=== PATIENT | male | born 1985 | race Caucasian/White ===

== ENCOUNTER 2018-02-26 11:34 | Emergency (ER) | payer BC, OTHER ==
[2018-02-26] MEDS ORDERED: Diphtheria,Pertussis(Acell),Tetanus Vaccine 0.5 ML SDV IM ONE (12:00)
--- NOTE | 2018-02-26 12:35 | CR ---
Clinical history: 32-year-old male injured left hand. Interpretation: Negative exam. Bandage artifact (no other foreign bodies). No sign of left hand or wrist fracture/dislocation.
[2018-02-26] MEDS ORDERED: Lidocaine 1% 30 ML SDV INJECT ONE (14:01)
--- NOTE | 2018-02-26 15:26 | EDM.PDOC ---
ED HPI GENERAL MEDICAL PROBLEM - General Chief Complaint: Laceration Stated Complaint: LACERATION/BLEEDING Time Seen by Provider: 02/26/18 14:00 Source of Information: Reports: Patient History Limitations: Reports: No Limitations - History of Present Illness INITIAL COMMENTS - FREE TEXT/NARRATIVE: ppatient comes emergency Department today with complaints of an injury to his left hand. This prior to arrival the patient was walking carrying a piece meat trimmer when he slipped and fell landing on his left hand. He sustained an injury to the pad surface of his left hand of his middle finger. His immunization status is unknown. He has a small amount of numbness to the pad of his left middle finger but no other injury. No other complaints. left hand Pain Score (Numeric/FACES): 3 - Related Data Allergies Allergy/AdvReac Type Severity Reaction Status Date / Time No Known Allergies Allergy Verified 02/26/18 12:02 Home Meds: Home Meds Amoxicillin/Potassium Clav [Augmentin 875-125 Tablet] 1 each PO BID #14 tablet 02/26/18 [Rx] Mupirocin Oint [Bactroban Oint] 22 gm TP BID #1 tube 02/26/18 [Rx] Past Medical History - Past Health History Medical/Surgical History: Denies Medical/Surgical History Social & Family History - Family History Family Medical History: Noncontributory - Tobacco Use Smoking Status *Q: Never Smoker Second Hand Smoke Exposure: No - Caffeine Use Caffeine Use: Reports: Coffee - Recreational Drug Use Recreational Drug Use: No ED ROS GENERAL - Review of Systems Review Of Systems: ROS reveals no pertinent complaints other than HPI. ED EXAM, SKIN/RASH Exam: See Below Exam Limited By: No Limitations General Appearance: Alert, WD/WN, No Apparent Distress Peripheral Pulses: 2+: Radial (L), Radial (R) Extremities: No: Normal Inspection (on the palmar surface of his left hand of the third finger there is a rather large distal proximal open gaping laceration on the proximal phalanges. He is able to flex and extend appropriately to all the joints of the left hand especially to his left finger. It is a very macerated laceration that extends into the subcutaneous tissue. There is a small amount larized tissue in the middle of the laceration as well. The CMS is otherwise normal through out the entirety of the left hand. There is no active bleeding. laceration is about 4-1/2 cm long and gaping.) Neurological: Alert, Oriented Psychiatric: Normal Affect, Normal Mood ED SKIN PROCEDURES - Laceration/Wound Repair Left Hand Lac/Wound length In cm: 4 Appearance: Subcutaneous, Irregular Distal NVT: Neuro & Vascular Intact Anesthetic Type: Local Local Anesthesia - Lidocaine (Xylocaine): 1% Plain Local Anesthetic Volume: Other (8) Skin Prep: Chlorhexidine (Hibiciens), Saline Saline Irrigation (cc's): 100 Exploration/Debridement/Repair: Wound Explored, In a Bloodless Field, Explored to Base, Wound Margins Revised, Multiple Flaps Aligned Closed with: Sutures Suture Size: 4-0 Suture Type: Interrupted Suture Size: 4-0 # of Sutures: 1 Sterile Dressing Applied: Nurse Tetanus Status Addressed: Yes Progress/Comments: tthis was a very technically difficult laceration to repair. The majorit of the distal aspect of the laceration had good skin approximation. the proximal aspe third finger there was a small amount of devascularized tissue that had to be removed. Due to this crush injury. I attempted to approximate the wound edges as close as I could but I was unable to pull it completely together due to tension and the concerns of function of the finger. The rest of the laceration will have to heal by secondary intention. Course - Vital Signs Last Recorded V/S: Last Vital Signs Temp 36.4 C 02/26/18 11:53 Pulse 79 02/26/18 13:57 Resp 18 02/26/18 13:57 BP 144/87 H 02/26/18 13:57 Pulse Ox 99 02/26/18 13:57 - Orders/Labs/Meds Orders: Active Orders 24 hr Category Date Time Status Vaccines to be Administered [RC] PER UNIT ROUTINE Care 02/26/18 11:51 Active Meds: Medications Discontinued Medications Generic Name Dose Route Start Last Admin Trade Name Freq PRN Reason Stop Dose Admin Diphtheria/Tetanus/Acell Pertussis 0.5 ml 02/26/18 12:00 02/26/18 14:05 Adacel IM 02/26/18 12:01 0.5 ml .ONCE ONE Administration Lidocaine HCl 30 ml 02/26/18 14:01 02/26/18 14:08 Xylocaine-Mpf 1% INJECT 02/26/18 14:02 5 ml ONETIME ONE Administration - Re-Assessments/Exams Free Text/Narrative Re-Assessment/Exam: 02/26/18 ue to the crush injury it was technically difficult to completely realign the wound edges and some was approximated as well as it could be without creating too much tension.There josé miguel small about a pea size area at the base of the laceration that will have to heal by secondary intention and granulation. Due to the area of injury the crush nature of this and my concern for infection we will place him on some Augmentin as well as topical Bactroban. Close observation for infection is highly important. Departure - Departure Time of Disposition: 15:20 Disposition: Home, Self-Care Clinical Impression: Crush injury to finger Qualifiers: Encounter type: initial encounter Qualified Code(s): S67.10XA - Crushing injury of unspecified finger(s), initial encounter - Discharge Information Prescriptions: Amoxicillin/Potassium Clav [Augmentin 875-125 Tablet] 1 each PO BID #14 tablet Mupirocin Oint [Bactroban Oint] 22 gm TP BID #1 tube Instructions: Crush Injury of the Hand, [id number], Laceration Care, Adult, [id number], Pain Medicine Instructions, [id number], Stitches, Girard, or Adhesive Wound Closure, [id number] Referrals: PCP,None [Primary Care Provider] - Forms: ED Department Discharge Additional Instructions: Augmentin, 875/125, 1 tablet twice daily for the next 7 days. RX given to the patient. Bactroban topical twice daily with dressing changes. RX given to the patient. Plans wound twice daily with soap and water. Apply Bactroban dressing. Keep the wound as clean as possible. Watch for signs of infection. Sutures out 10 days. Make sure that you are flexing and extending her finger very regularly especially at the proximal joint to keep movement. Tylenol and or Ibuprofen as needed for pain. Return to the emergency department or worsening symptoms. Recheck primary care provider in the next 4-6 days if not improving sooner if worse. - My Orders Last 24 Hours: My Active Orders 02/26/18 11:51 Vaccines to be Administered [RC] PER UNIT ROUTINE - Assessment/Plan Last 24 Hours: My Active Orders 02/26/18 11:51 Vaccines to be Administered [RC] PER UNIT ROUTINE Assessment:: crush injury with resulting 4cm laceration to the base of the arias surface of the left 3rd finger.
== END 2018-02-26 15:30 | disposition home or self-care (01) ==
LOC: DL.ED 11:34
DX: S67.193A Crushing injury of left middle finger, initial encounter (principal); S61.213A Laceration without foreign body of left middle finger without damage to nail, initial encounter; Z23 Encounter for immunization; W26.8XXA Contact with other sharp object(s), not elsewhere classified, initial encounter
CPT/HCPCS: 12032; 73130; 90471; 90715; 99283; J2001; 12011

== ENCOUNTER 2021-05-17 08:11 | Emergency (ER) | payer OTHER ==
[2021-05-17] MEDS ORDERED: Sodium Chloride 0.9% 10 ML Syringe FLUSH PRN (08:40)
[2021-05-17 09:18] LABS: ANION GAP 12.6 mEq/L (7-13); CHLORIDE,CL 104 mmol/L (98-107); ESTIMATED GFR > 60; PTT,PARTIAL THROMBOPLSTIN TIME 24.6 SEC (22.0-34.0); SODIUM,NA 142 mmol/L (136-145)
== END 2021-05-17 10:27 | disposition home or self-care (01) ==
LOC: DL.ED 08:11
DX: R07.89 Other chest pain (principal)
CPT/HCPCS: 36415; 71045; 80053; 83605; 83690; 84484; 85025; 85379; 85610; 85651; 85730; 86140; 93005; 99285; J3490; 93010

== ENCOUNTER 2022-02-20 12:53 | Emergency (ER) | payer OTHER ==
[2022-02-20] MEDS: Famotidine 20 MG/2 ML SDV IVPUSH ONE (13:15)
[2022-02-20] MEDS: diphenhydrAMINE 50 MG/ML SDV IVPUSH ONE (13:15)
[2022-02-20] MEDS: methylPREDNISolone Sodium Succinate 125 MG/2 ML SDV IVPUSH ONE (13:15)
[2022-02-20] MEDS: Sodium Chloride 0.9% 10 ML Syringe FLUSH PRN (13:16)
== END 2022-02-20 14:34 | disposition home or self-care (01) ==
LOC: DL.ED 12:53
DX: L50.0 Allergic urticaria (principal); Z88.0 Allergy status to penicillin
CPT/HCPCS: 96374; 96375; 99283-25; J1200; J2930; J3490

== ENCOUNTER 2023-10-14 10:23 | Emergency (ER) | payer OTHER ==
[2023-10-14] MEDS: Diphtheria,Pertussis(Acell),Tetanus Vaccine 0.5 ML Syringe IM ONE (12:50)
[2023-10-14] MEDS: Bacitracin Oint 1 GM U/D Packet TOP ONE (12:52)
[2023-10-14] MEDS: Lidocaine 1% 5 ML VIAL INJECT ONE (12:54)
== END 2023-10-14 13:13 | disposition home or self-care (01) ==
LOC: DL.ED 10:23
DX: S71.112A Laceration without foreign body, left thigh, initial encounter (principal); Z23 Encounter for immunization; Z88.0 Allergy status to penicillin; W26.0XXA Contact with knife, initial encounter; Y99.0 Civilian activity done for income or pay; Y92.89 Other specified places as the place of occurrence of the external cause
CPT/HCPCS: 12001; 90471; 90715; 99282; 99282-25; A9270-GY; J3490